=== PATIENT | female | born 2000 | race Caucasian/White ===

== ENCOUNTER 2018-03-19 12:32 | Emergency (ER) | payer OTHER ==
--- NOTE | 2018-03-19 13:41 | EDPHY ---
H & P Stated Complaint: RUQ pain for several dasy. Has U/S earlier today. Time Seen by Provider: 03/19/18 13:41 HPI/ROS: CHIEF COMPLAINT: Abdominal pain HISTORY OF PRESENT ILLNESS: This is a 17-year-old female who presents with 1 month of diffuse abdominal pain, sometimes worse across her upper abdomen. She has vomited after eating for the past 2 days. She describes the pain as constant and knife like. She rates it as a 5 to 6/10. She smokes marijuana on occasion. She has not had fever. She denied denies any urinary complaints. She is sexually active and denies any history of STD, any vaginal discharge, and any pain with intercourse. She has been tested for STDs on February 28 and again on March 13; testing was negative. She has a control implant. She has never been . She was seen by her primary care physician for this and underwent an abdominal ultrasound today that was negative. REVIEW OF SYSTEMS: A ten system review of systems was performed and is negative with the exception of the items mentioned in the HPI. Past medical history: Negative Past surgical history: 2 knee surgeries Family history: Noncontributory Social history: Her mother accompanies her today. 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 She smokes marijuana on occasion. No tobacco use. General Appearance: Alert. Vital signs reviewed. Afebrile. Eyes: Pupils equal and round, no conjunctival injection, no discharge. Anicteric. ENT, Mouth: Mucous membranes are moist, no oropharyngeal erythema or edema. Neck: No lymphadenopathy, supple. Respiratory: Lungs are clear to auscultation; no wheezes, rales, or rhonchi. Cardiovascular: Regular rate and rhythm; no murmur, rub, or gallop. Gastrointestinal: Abdomen is soft and mildly diffusely tender without guarding , no masses or organomegaly, bowel sounds normal. Skin: Warm and dry, no rashes on exposed skin, normal color. Back: Nontender to palpation over the thoracolumbar spine. No CVAT. Extremities: No lower extremity edema, no calf tenderness or swelling. Neurological: Alert and oriented. Moving all four extremities easily and equally. Psychiatric: Normal affect. - Personal History LMP (Females 10-55): Extended Cycle BCP/Inj Current Tetanus Diphtheria and Acellular Pertussis (TDAP): Yes - Medical/Surgical History Hx Asthma: No Hx Chronic Respiratory Disease: No Hx Diabetes: No Hx Cardiac Disease: No Hx Renal Disease: No Hx Cirrhosis: No Hx Alcoholism: No Hx HIV/AIDS: No Hx Splenectomy or Spleen Trauma: No Other PMH: 2 knee surgeries - Social History Smoking Status: Never smoked Constitutional: Initial Vital Signs Temperature (C) 36.6 C 03/19/18 12:34 Heart Rate 78 03/19/18 12:34 Respiratory Rate 16 03/19/18 12:34 Blood Pressure 125/79 H 03/19/18 12:34 O2 Sat (%) 96 03/19/18 12:34 O2 Delivery Mode Room Air Allergies/Adverse Reactions: nickel Allergy (Intermediate, Verified 03/19/18 21:35) Itching Home Medications: Medication Instructions Recorded Amphet Asp and D/Amphet [Adderall 20 mg PO DAILY@1400 PRN 03/20/18 20 mg (*)] Lisdexamfetamine Dimesylate 40 mg PO DAILY 03/20/18 [Vyvanse] Medical Decision Making ED Course/Re-evaluation: I reviewed the patient's previous records. She had STD testing done twice this month, both times negative for GC and Chlamydia. She had an abdominal ultrasound done earlier today which is negative. CT scan the abdomen and pelvis was performed today. 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 I doubt that this is the etiology of her pain but I am strongly recommending that she follow up with a specialist to have this further evaluated. I spoke with both the patient and her mother about this diagnosis. She received 1 L IV normal saline, 4 mg IV Zofran, and 75 mcg IV fentanyl in the emergency department. She had some initial pain relief but her pain resurfaced. She then received ketamine 5 mg IV. She had a good result with the ketamine and was able to pass a p.o. Challenge. Her pain at again started to resurfaced and she was given a 2nd dose of IV ketamine. Following the 2nd dose she felt well enough to return home. She had CBC, chemistries, lipase, beta HCG, and urinalysis done today. I reviewed these results. There is nothing to suggest infection such as urinary tract infection, pyelonephritis, appendicitis, or cholecystitis. Her ultrasound suggests against both cholecystitis and appendicitis. I do not suspect ureterolithiasis based upon the nature of her symptoms. Although her pain is diffuse, it tends to be in her upper abdomen and I do not suspect intermittent ovarian torsion or ovarian cyst. Ultrasound also would rule against these entities. Gastritis and peptic ulcer disease are certainly possibilities. In addition to being referred to a real estate rep for follow-up on the renal nutcracker syndrome, I am also referring her to a [facility] and encouraging follow-up as soon as possible. Danger signs were reviewed. Both she and her mother comfortable returning home at this point in time. They understand that the etiology of her pain remains unclear. - Data Points Laboratory Results: Laboratory Results 03/19/18 13:45 03/19/18 13:45 Medications Given: Discontinued Medications Fentanyl (Sublimaze) 75 mcg IVP EDNOW ONE Stop: 03/19/18 14:09 Last Admin: 03/19/18 14:23 Dose: 75 mcg Sodium Chloride (Ns) 1,000 mls @ 0 mls/hr IV EDNOW ONE; Wide Open PRN Reason: Protocol Stop: 03/19/18 14:09 Last Admin: 03/19/18 14:24 Dose: 1,000 mls Ketamine HCl (Ketamine) 5 mg IVP EDNOW ONE Stop: 03/19/18 15:05 Last Admin: 03/19/18 15:09 Dose: 5 mg Ketamine HCl (Ketamine) 5 mg IVP EDNOW ONE Stop: 03/19/18 18:02 Last Admin: 03/19/18 18:10 Dose: 5 mg Ondansetron HCl (Zofran) 4 mg IVP EDNOW ONE Stop: 03/19/18 14:09 Last Admin: 03/19/18 14:23 Dose: 4 mg Ondansetron HCl (Zofran) 4 mg IVP EDNOW ONE Stop: 03/19/18 15:13 Last Admin: 03/19/18 15:13 Dose: 4 mg Departure - Departure Disposition: Home, Routine, Self-Care Clinical Impression: Abdominal pain Qualifiers: Abdominal location: generalized Qualified Code(s): R10.84 - Generalized abdominal pain Condition: Good Instructions: Abdominal Pain (ED) Additional Instructions: As you know, it is not clear what has been causing your abdominal pain and your difficulty eating. I am recommending that you follow up with a [facility] and I am referring you to Dr. Gatof. It is fine for you to see any of the gastroenterologists in that group and I would take the earliest appointment that they can offer you. Make sure that the office staff knows that you are being referred from the emergency department. I am also referring you to a real estate rep, Dr. Pierson, to evaluate the renal nutcracker syndrome that was seen on your CT scan. It is not clear whether not this is related to your symptoms. I am also referring you to a primary care provider in case you need one, Dr. Adamaris Rome. I recommend that you put 1 of the Zofran wafers under tongue every time you want to eat. Let it dissolve and then try a bland meal. Small meals are best. I am providing a small quantity of Vicodin, an opiate pain medicine, that you can use over the weekend if needed. Adult Pain & Fever Control: We recommend Acetaminophen (Tylenol) and Ibuprofen (Motrin,Advil) for pain and fever control. When fever is high or pain severe, both drugs can be used at the same time, but at different intervals. Please note the time differences. Your dose is: Acetaminophen 650mg every 4 to 6 hours Ibuprofen 400mg every 8 hours with food OR Note: do not take Acetaminophen with Hydrocodone (Vicodin, Lortab) or Oycodone (Percocet). These medications also contain Acetaminophen. No more than 3000mg of Acetaminophen should be taken in 24 hours (for an adult). Referrals: Bebeto Sargent DO [Doctor of Osteopathy] - As per Instructions Taco Black MD [Medical Doctor] - As per Instructions Adamaris Rome MD [Medical Doctor] - As per Instructions
[2018-03-19] MEDS ORDERED: ONDANSETRON 4 MG/2 ML VIAL IVP ONE ×2 (14:08→15:12)
[2018-03-19] MEDS ORDERED: NS 1,000 ML IV ONE (14:08)
[2018-03-19] MEDS ORDERED: fentaNYL 100 MCG/2 ML INJ IVP ONE (14:08)
[2018-03-19 14:28] LABS: PLATELET COUNT 321 10^3/uL (150-400)
[2018-03-19] MEDS ORDERED: ONDANSETRON 4 MG/2 ML VIAL ONE (14:58)
[2018-03-19] MEDS ORDERED: KETAMINE 200 MG/20 ML VIAL IVP ONE ×2 (15:04→18:01)
[2018-03-19] MEDS ORDERED: IOPAMIDOL (ISOVUE-300) 100 ML BTL ONE (15:50)
[2018-03-19 18:41] VITALS: BP 118/80
== END 2018-03-19 18:41 | disposition home or self-care (01) ==
DX: R10.84 Generalized abdominal pain (principal); I87.1 Compression of vein; E86.9 Volume depletion, unspecified
CPT/HCPCS: 96374; J2405; J3010; Q9967

== ENCOUNTER 2018-03-19 21:32 | Inpatient (IN) | payer OTHER ==
[2018-03-19] MEDS ORDERED: FAMOTIDINE 20 MG/NACL 50 ML IV ONE (22:17)
[2018-03-19] MEDS ORDERED: PROMETHAZINE HCL 25 MG/ML INJ IVP ONE (22:17)
[2018-03-19] MEDS ORDERED: PANTOPRAZOLE SODIUM 40 MG VIAL IVP ONE (22:17)
[2018-03-19] MEDS ORDERED: NS 1,000 ML IV ONE ×2 (22:17)
--- NOTE | 2018-03-19 22:22 | EDPHY ---
H & P Stated Complaint: Seen earlier-continued nausea, epigastric pain. Time Seen by Provider: 03/19/18 21:58 HPI/ROS: HPI The patient presents with epigastric abdominal pain which has been present for the last 3 days which started fairly suddenly. The pain is achy radiates throughout her upper abdomen, is severe and causes her to double over in pain. It he comes in waves lasting for hours at a time, usually worse after meals or water. This is associated with nausea and vomiting. The patient is only able to take several sips of water before she begins to vomit. She has not had any diarrhea, fever, dark or bloody stool, abdominal bloating. Over the last 1 year she has had some early satiety. She is able to take a few bites of food and then becomes full. Since December of 2017 she has lost 15 lb. She does take Adderall and Vyvanse though her Adderall dose has decreased recently and she is not taking any more Vyvanse than usual. She has Nexplanon for control. She does not have any NSAID use. She is visiting from [place] where she goes to college. Her family lives locally. She saw a primary care nurse practitioner when her symptoms started and was prescribed a PPI, however she has not been able to tolerated as she vomits it. She had an abdominal ultrasound done today which was unremarkable as an outpatient. She presented to the emergency room this morning with ongoing symptoms. She had labs which were unremarkable. She had a CT scan of her abdomen which was relatively unremarkable though showed possible left renal nutcracker syndrome. REVIEW OF SYSTEMS 10 systems were reviewed and negative with the exception of the elements mentioned in the history of present illness. PMHx: Healthy, prior orthopedic knee operation Soc Hx: College student in [place] PHYSICAL General Appearance: Alert, no distress Eyes: Pupils equal and round no pallor or injection ENT, Mouth: Mucous membranes moist Respiratory: There are no retractions, lungs are clear to auscultation Cardiovascular: Regular rate and rhythm Gastrointestinal: Abdomen is soft and tender in the epigastrium, no masses, bowel sounds normal Neurological: A&O, moves all extremities Skin: Warm and dry, no rashes Musculoskeletal: Neck is supple non tender Extremities: symmetrical, full range of motion Psychiatric: Patient is oriented X 3, there is no agitation Source: Patient Exam Limitations: No limitations - Personal History LMP (Females 10-55): Extended Cycle BCP/Inj Current Tetanus/Diphtheria Vaccine: Unsure Current Tetanus Diphtheria and Acellular Pertussis (TDAP): Unsure - Medical/Surgical History Hx Asthma: No Hx Chronic Respiratory Disease: No Hx Diabetes: No Hx Cardiac Disease: No Hx Renal Disease: No Hx Cirrhosis: No Hx Alcoholism: No Hx HIV/AIDS: No Hx Splenectomy or Spleen Trauma: No Other PMH: 2 knee surgeries. - Social History Smoking Status: Never smoked Constitutional: Initial Vital Signs Temperature (C) 36.8 C 03/19/18 21:36 Heart Rate 75 03/19/18 21:36 Respiratory Rate 16 03/19/18 21:36 Blood Pressure 126/76 H 03/19/18 21:36 O2 Sat (%) 98 03/19/18 21:36 O2 Delivery Mode Room Air Allergies/Adverse Reactions: nickel Allergy (Intermediate, Verified 03/19/18 21:35) Itching Home Medications: Medication Instructions Recorded Amphet Asp and D/Amphet [Adderall 20 mg PO DAILY@1400 PRN 03/20/18 20 mg (*)] Lisdexamfetamine Dimesylate 40 mg PO DAILY 03/20/18 [Vyvanse] Medical Decision Making Differential Diagnosis: This is a 17-year-old female who is had 1 year of anorexia and early satiety, several months of weight loss which is unintentional, and 3 days of severe epigastric abdominal pain with vomiting with symptoms poorly controlled at home. She was discharged from the emergency department earlier today, went home with Zofran 0 DT, however is vomiting it up at home and is having ongoing abdominal pain. Plan for IV fluids, symptomatic relief, repeat labs. The patient had recurrence of her pain and was given ketamine without any improvement of her symptoms. She then was given a dose of Dilaudid which did help her pain. He received 2 L of fluid. Labs were unremarkable. She did have ongoing nausea and vomiting and was able to tolerate p.o.. Because of this I have discussed the case with Dr. Tucker of the hospitalist service and we will admit her for observation. Differential diagnosis includes gastritis, GERD, cannabinoid hyperemesis syndrome, anxiety. - Data Points Laboratory Results: Laboratory Results 03/20/18 06:11 03/20/18 06:11 Medications Given: Hydromorphone HCl (Dilaudid) 0.2 - 0.4 mg IVP Q4HRS PRN PRN Reason: Pain, Severe Unable to Take PO Stop: 03/30/18 01:06 Last Admin: 03/20/18 20:13 Dose: 0.4 mg Dextrose/Sodium Chloride (D5w 1/2 Ns) 1,000 mls @ 100 mls/hr IV CONT CONNIE Stop: 09/15/18 23:44 Last Admin: 03/20/18 14:28 Dose: 1,000 mls Lorazepam (Ativan Injection) 1 mg IVP Q4HRS PRN PRN Reason: Nausea Stop: 09/16/18 01:45 Last Admin: 03/20/18 20:13 Dose: 1 mg Pantoprazole Sodium (Protonix) 40 mg IVP DAILY [facility] Stop: 09/16/18 10:59 Last Admin: 03/20/18 12:33 Dose: 40 mg Discontinued Medications Hydromorphone HCl (Dilaudid) 0.5 mg IVP EDNOW ONE Stop: 03/19/18 23:16 Last Admin: 03/19/18 23:19 Dose: 0.5 mg Sodium Chloride (Ns) 1,000 mls @ 0 mls/hr IV EDNOW ONE; Wide Open PRN Reason: Protocol Stop: 03/19/18 22:18 Last Admin: 03/19/18 22:27 Dose: 1,000 mls Sodium Chloride (Ns) 1,000 mls @ 0 mls/hr IV EDNOW ONE; Wide Open PRN Reason: Protocol Stop: 03/19/18 22:18 Last Admin: 03/19/18 22:28 Dose: 1,000 mls Famotidine/Sodium Chloride (Pepcid 20 Mg (Premix)) 50 mls @ 200 mls/hr IV EDNOW ONE Stop: 03/19/18 22:31 Last Admin: 03/19/18 22:28 Dose: 50 mls Ketamine HCl (Ketamine) 5 mg IV EDNOW ONE Stop: 03/19/18 22:53 Last Admin: 03/19/18 22:55 Dose: 5 mg Pantoprazole Sodium (Protonix) 80 mg IVP EDNOW ONE Stop: 03/19/18 22:18 Last Admin: 03/19/18 22:29 Dose: 80 mg Promethazine HCl (Phenergan) 12.5 mg IVP EDNOW ONE Stop: 03/19/18 22:18 Last Admin: 03/19/18 22:28 Dose: 12.5 mg Promethazine HCl (Phenergan) 6.25 - 12.5 mg IVP Q6HRS PRN PRN Reason: Nausea/Vomiting, Use 2nd Stop: 09/15/18 23:46 Last Admin: 03/20/18 11:04 Dose: 12.5 mg Scopolamine HBr (Scopolamine Patch) 1 patch TD Q24H ONE Stop: 03/20/18 13:24 Last Admin: 03/20/18 14:25 Dose: 1 patch Departure - Departure Disposition: [facility] Inpatient Acute Clinical Impression: Epigastric abdominal pain Intractable vomiting with nausea Qualifiers: Vomiting type: unspecified Qualified Code(s): R11.2 - Nausea with vomiting, unspecified Condition: Good
[2018-03-19] MEDS ORDERED: KETAMINE 500 MG/10 ML VIAL IV ONE (22:52)
[2018-03-19] MEDS ORDERED: HYDROmorphONE/DILAUDID 2 MG/ML INJ IVP ONE (23:15)
[2018-03-19 23:34] LABS: PLATELET COUNT 284 10^3/uL (150-400)
[2018-03-19] MEDS ORDERED: ONDANSETRON DISINTEGRATING 4 MG TAB PO PRN (23:47)
--- NOTE | 2018-03-20 00:58 | PDGENHP ---
History and Physical - Chief Complaint Nausea, abdominal pain - History of Present Illness 17 yo F w/ hx of ADHD presents with nausea, vomiting, and abdominal pain. She reports these symptoms for about 3 days. She describes epi-gastric/RUQ severe pain that will last for several hours at a time. The pain feels like a sharp cramp. This is associated with severe nausea and vomiting. She denies recent illness and infectious ROS such as fever, chills, sore throat, body aches, etc. She denies diarrhea or constipation. She also denies any blood in stools or melena. She has had no recent sick contacts or consumed any suspicious foods. She has been seen in the ED multiple times over the last 24 hours. Her symptoms improved during her last visit with ketamine. However, shortly after returning home her symptoms recurred. Of note, she also tells me that for the last year she has a feeling of early satiety. She has lost 10-15 lbs since returning to college in [place] in December. She tells me she does have a history of poorly controlled anxiety as well. There is no family hx of known IBD. She drinks alcohol and smokes MJ only occasionally. She takes no other drugs aside from prescribed Vyvanse and Adderall. Work-up in the ED unremarkable including laboratory work-up and CT. Case discussed with ED physician Dr. Doran; records reviewed in EMR. History Information - Allergies/Home Medication List Allergies/Adverse Reactions: nickel Allergy (Intermediate, Verified 03/19/18 21:35) Itching Home Medications: No Medications [NO HOME MEDICATIONS] 1 ea MISC 09/20/11 [Last Taken Unknown] Zofran 03/19/18 [Last Taken Unknown] I have personally reviewed and updated: family history, medical history - Past Medical History Additional medical history: ADHD - Surgical History Reports: no pertinent surgical hx - Family History Additional family history: Denies family hx of IBD - Social History Smoking Status: Never smoked Review of Systems Review of Systems: ROS: 10pt was reviewed & negative except for what was stated in HPI & below Physical Exam Physical Exam: Temp Pulse Resp BP Pulse Ox 36.8 C 45 L 16 108/52 L 98 03/19/18 21:36 03/20/18 00:29 03/20/18 00:29 03/20/18 00:29 03/20/18 00:29 Constitutional: no apparent distress, other (Underweight) Eyes: PERRL, EOMI Ears, Nose, Mouth, Throat: moist mucous membranes, no oral mucosal ulcers Cardiovascular: regular rate and rhythym, no murmur, rub, or gallop Respiratory: no respiratory distress, clear to auscultation Gastrointestinal: normoactive bowel sounds, tenderness (Mild, epi-gastric/RUQ), No guarding, No rebound, No distension Skin: warm, normal color Musculoskeletal: full muscle strength, no muscle tenderness Neurologic: AAOx3, CN II-XII Intact Psychiatric: interacting appropriately, not anxious Lab Data & Imaging Review 03/19/18 22:00 03/19/18 22:00 WBC 7.34 10^3/uL (3.80-9.50) 03/19/18: RBC 4.29 10^6/uL (4.18-5.33) 03/19/18 22:00 Hgb 14.3 g/dL (12.6-16.3) 03/19/18 22: Hct 40.8 % (38.0-47.0) 03/19/18 22:00 MCV 95.1 fL (81.5-99.8) 03/19/18 22:00 MCH 33.3 pg (27.9-34.1) 03/19/18 22: MCHC 35.0 g/dL (32.4-36.7) 03/19/18 22: RDW 12.1 % (11.5-15.2) 03/19/18:00 Plt Count 284 10^3/uL (150-400) 03/19/18: MPV 10.6 fL (8.7-11.7) 03/19/18 22:00 Neut % (Auto) 70.1 % (39.3-74.2) 03/19/18 22:00 Lymph % (Auto) 21.3 % (15.0-45.0) 03/19/18 22:00 Hardy % (Auto) 7.6 % (4.5-13.0) 03/19/18 22:00 Eos % (Auto) 0.3 % (0.6-7.6) L 03/19/18 22: Baso % (Auto) 0.4 % (0.3-1.7) 03/19/18 22:00 Nucleat RBC Rel Count 0.0 % (0.0-0.2) 03/19/18 22:00 Absolute Neuts (auto) 5.15 10^3/uL (1.70-6.50) 03/19/18 22:00 Absolute Lymphs (auto) 1.56 10^3/uL (1.00-3.00) 03/19/18 22:00 Absolute Monos (auto) 0.56 10^3/uL (0.30-0.80) 03/19/18 22:00 Absolute Eos (auto) 0.02 10^3/uL (0.03-0.40) L 03/19/18 22:00 Absolute Basos (auto) 0.03 10^3/uL (0.02-0.10) 03/19/18 22:00 Absolute Nucleated RBC 0.00 10^3/uL (0-0.01) 03/19/18 22:00 Immature Gran % 0.3 % (0.0-1.1) 03/19/18 22:00 Immature Gran # 0.02 10^3/uL (0.00-0.10) 03/19/18 22:00 Sodium 141 mEq/L (135-145) 03/19/18 22:00 Potassium 4.1 mEq/L (3.3-5.0) 03/19/18 22:00 Chloride 108 mEq/L (97-110) 03/19/18 22:00 Carbon Dioxide 22 mEq/l (22-31) 03/19/18 22:00 Anion Gap 11 mEq/L (6-14) 03/19/18 22:00 BUN 8 mg/dL (7-23) 03/19/18 22:00 Creatinine 0.8 mg/dL (0.6-1.0) 03/19/18 22:00 Estimated GFR > 60 03/19/18 22:00 Glucose 83 mg/dL (70-100) 03/19/18 22:00 Calcium 10.4 mg/dL (8.5-10.4) 03/19/18 22:00 Total Bilirubin 0.9 mg/dL (0.1-1.4) 03/19/18 22:00 Conjugated Bilirubin 0.2 mg/dL (0.0-0.5) 03/19/18 22:00 Unconjugated Bilirubin 0.7 mg/dL (0.0-1.1) 03/19/18 22:00 AST 21 IU/L (14-46) 03/19/18 22:00 ALT 27 IU/L (9-52) 03/19/18 22:00 Alkaline Phosphatase 80 IU/L (38-126) 03/19/18 22:00 Total Protein 7.7 g/dL (6.3-8.2) 03/19/18 22:00 Albumin 4.8 g/dL (3.5-5.0) 03/19/18 22:00 Lipase 84 IU/L (23-300) 03/19/18 22:00 Assessment & Plan Assessment: 17 yo F w/ hx of ADHD presents with nausea, vomiting, and abdominal pain of unclear etiology. Plan: 1. Abdominal pain, nausea, vomiting - Unclear etiology; laboratory work-up including LFTs, lipase, and UA reassuring. CT without acute findings to explain symptoms. She denies recent illness, BRBPR, melena, and family hx of IBD. Considerations currently include viral gastroenteritis vs. gastritis/PUD vs. IBS vs. functional abdominal pain. If she is being truthful about substance use then CHS seems unlikely. - Admit for observation - mIVF, pain control, anti-emetics PRN - Would consider inpatient GI consult if symptoms do not resolve with supportive care 2. ADHD - On Vyvanse and Adderall as outpatient. 3. Early satiety, weight loss - It seems these issues have been going on for about a year. These could be related to poorly controlled anxiety or developing eating disorder, although patient tells me she eats well (with mother present in the room). 4. L renal nutcracker syndrome - Incidentally found on imaging; unlikely to be contributing to presenting symptoms. Renal function WNL. - Outpatient renal consult provided Diet - Clears, ADAT Code - Full Ppx - Low risk, ambulate TID Dispo - Admit under observation status
[2018-03-20] MEDS ORDERED: DICYCLOMINE 10 MG CAP PO PRN (01:07)
[2018-03-20] MEDS: PROMETHAZINE HCL 25 MG/ML INJ IVP PRN ×2 (01:35→11:04)
[2018-03-20] MEDS: LORazepam 2 MG/ML INJ IVP PRN ×3 (01:54→20:13)
[2018-03-20] MEDS: HYDROmorphONE/DILAUDID 1 MG/ML INJ IVP PRN ×3 (06:10→20:13)
[2018-03-20 06:27] LABS: PLATELET COUNT 222 10^3/uL (150-400)
--- NOTE | 2018-03-20 10:50 | HOSPPROG ---
Hospitalist Progress Note Assessment/Plan: # persistent N/V/abd pain - unclear etiology; MJ hyperemesis? - cont conservative mgmt with IVF, pain control and enti-emetics - discussed with Dr Black - he will consult and consider EGD # nutcracker kidney - no c/w current presentation - no proteinuria or hematuria Subjective: still actively vomiting; c/o ongoing RLQ pain Objective: Vital Signs Temp Pulse Resp BP Pulse Ox 36.8 C 68 16 119/73 95 03/20/18 08:32 03/20/18 08:32 03/20/18 08:32 03/20/18 08:32 03/20/18 08:32 Laboratory Results 03/20/18 06:11 03/20/18 06:11 03/19/18 03/20/18 03/21/18 05:59 05:59 05:59 Intake Total 2500 Balance 2500 chart reviewed US and CT reviewed - Physical Exam Constitutional: uncomfortable (vomiting) Eyes: anicteric sclera Ears, Nose, Mouth, Throat: hearing normal Cardiovascular: No edema Respiratory: no respiratory distress (soft, RLQ TTP, no masses, no HSM) Gastrointestinal: No guarding, No rebound ICD10 Worksheet Patient Problems: Problems Problem Status Onset Abdominal pain Acute Abdominal pain Acute
--- NOTE | 2018-03-20 11:52 | PDMN ---
Medical Necessity Medical necessity: Change to inpt as of 03/20/18 @ 1047. Pt meets inpt criteria per MD order and MCG M-370, Vomiting. 17 y/o admitted with abdominal pain, nausea, and vomiting. Nausea, vomiting, and abd pain persist- unclear etiology, cont to require IV antiemetics, IV Dilaudid for pain. Est LOS>2MN for ongoing eval/management of above.
[2018-03-20] MEDS: PANTOPRAZOLE SODIUM 40 MG VIAL IVP SCH (12:33)
[2018-03-20] MEDS ORDERED: SCOPOLAMINE HYDROBROMIDE 1 MG/3 DAYS PATCH TD ONE (13:23)
--- NOTE | 2018-03-20 13:39 | ASMTCMCOM ---
CM Note CM Note Notes: Pt is a 17y female who presented to the ED for the 2nd time in one day for RUQ/epigastric abdominal pain and N/V. Pt admitted for N/V and abd pain of unclear etiology (labs and CT scan unremarkable). Pt also reports feelings of early satiety for the past year. Pt reports losing 10-15 lbs since returning to college in [place] in December. Pt has a history of ADHD, poorly controlled anxiety, and occasional ETOH and marijuana use. Abd CT scan unremarkable except for incidental finding of left renal nutcracker syndrome; outpatient renal consult/referral provided. Dr Black w/GI consulted and is considering EGD. Per MD notes, concern for pt developing an eating disorder? Also considering Cannabis Hyperemesis Syndrome? Exact DC needs TBD but anticipate pt to stabilize and DC home w/family (parents live here in [place]). CM to follow. Date Signed: 03/20/2018 01:38 PM Electronically Signed By:Adamaris Lomeli RN
--- NOTE | 2018-03-20 14:05 | GCON ---
DATE OF CONSULTATION: 03/20/2018 REFERRING PHYSICIAN: Keshawn Zambrano MD Dear Dr. Zambrano: Thank you very kindly for asking me to evaluate the patient in consultation for a chief complaint of nausea, vomiting, and generalized abdominal pain. 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 The kidney otherwise imaged normally. The other radiographic finding s were unremarkable. Her blood work has been normal. She is unable to eat or drink because of the v omiting. This started about 3 days ago when traveling from [place], where she goes to school. She h as not had previous episodes. The patient describes the abdominal pain as sharp and somewhat stabbin g. It is worse when she tries to eat. She is nauseous and has no appetite. She has lost about 12 p ounds of weight over the last 3 months. She did have a very stressful fall semester with midterms. She has been treated with Dilaudid, antiemetic, and Ativan and seems to be doing somewhat better. Timi arroyo was somnolent and difficult to arouse initially when I came into the room. She also has underlying anxiety, which has been very longstanding for her. I am asked to assist with further evaluation and management. PAST MEDICAL HISTORY: Significant for anxiety disorder, attention deficit disorder, chronic cannabis use. PAST SURGICAL HISTORY: None. FAMILY HISTORY: Negative for any functional bowel disorders, inflammatory bowel disease, peptic ulce r disease, although her grandmother had pancreatitis. SOCIAL HISTORY: She is a sophomore in [place]. She has a very supportive family. She has chronic a nxiety. She smokes marijuana routinely several times a week, and she says she has been cutting back on this. No alcoholism. REVIEW OF SYSTEMS: GENERAL: Malaise, fatigue. HEENT: No headache. No visual disturbances. Denie s odynophagia. No ear pain. No rhinorrhea. PULMONARY: No cough or shortness of breath. CARDIOVAS CULAR: No chest pain or palpitations. GI: Diffuse abdominal pain, seems to be worse on the right s cherelle and epigastric. Reports nausea with vomiting. No hematemesis. No bowel movements in the last c ouple of days, which is a little unusual for her, but she says she thinks it is because she is not ea ting. No melena. No hematochezia. No diarrhea. MUSCULOSKELETAL: Denies any joint pain. No myalgi a. DERMATOLOGIC: No hives, jaundice, rash, or pruritus. NEUROLOGIC: No headache. No falls. No s eizure. RHEUMATOLOGIC: Denies joint pain, swelling, or warmth. HEMATOLOGIC: No bruising or epista xis. PHYSICAL EXAM: VITAL SIGNS: Blood pressure is 113/72. Pulse is between 45 and 68 and regular. Oxy genation is 97% on room air. Respirations are between 12 and 14. Temperature is 36.8. GENERAL: Com fortable female, sleeping, difficult to arouse, but once awake, does seem cognitively appropriate but then falls back asleep. HEENT: Normocephalic, atraumatic. NECK: Supple. No scleral icterus. No adenopathy. No thyromegaly. No jugular venous distention. PULMONARY: Good air exchange. Lungs a re clear sounding, without rales or wheeze. CARDIOVASCULAR: No costochondral tenderness. Normal ra te. Normal rhythm. No obvious murmur. GI: The abdomen is scaphoid and quite thin. No organomegal y. Bowel sounds are present and normoactive. Generalized tenderness, without rebound or guarding. No palpable mass. No hernia. No abdominal bruit. No ascites. MUSCULOSKELETAL: No joint deformity , swelling or warmth. DERMATOLOGIC: Skin is normal. She is pale, but no jaundice or rash. NEURO: Sleepy but alert, arousable, able to communicate with me after pressing her with questions multiple times, but I think this is just due to her exhaustion and medications on board. No focal neuro defic its. LABORATORY DATA: Database includes the following: White blood count is 6.8, hematocrit 36.0, MCV 93 .3. Platelets are 222. Sodium 141, potassium 4.1, chloride 111, bicarbonate 20, BUN 7, creatinine 0 .6, glucose 129, AST 17, ALT 25, alkaline phosphatase 54, total protein 6.3, albumin 3.8. Lipase is 84. Imaging includes an abdominal ultrasound performed on March 19, 2018, that is normal. CT scan of t he abdomen and pelvis March 19, 2018, with oral and IV contrast. This shows clear lung bases, no s ignificant intraabdominal fluid, normal liver, normal gallbladder, normal bile ducts. The pancreas a nd spleen are normal. The bowel is unremarkable. There is compression of the left renal vein betwee n the SMA and aorta causing venous collateralization. No adenopathy or mass. The bowel is unremarka ble without dilation. The urinary bladder is normal. The appendix is visualized and unremarkable. IMPRESSION: 1. Nausea, vomiting. 2. Weight loss of 12 pounds in the last 3 months. 3. Diffuse abdominal pain. The differential is broad and can include hyperemesis of cannabis syndro me, possibly superior mesenteric artery syndrome. Although there is no radiographic evidence of this, this can fit with vomiting in young people who are thin and lose a lot of weight, cyclical vomiting syndrome, functional bowel, such as dyspepsia or of course other organic gastrointestinal disorders, such as acid peptic-related illness. I am leaning heavily toward more of a functional bowel disorder , however, given her clinical presentation and story. RECOMMENDATIONS: 1. Supportive care for now. Continue IV fluid. She may eat and drink as she likes. 2. Managing anxiety. I think Ativan is a good choice for this and can help with the nausea. 3. Trial of scopolamine patch. She has noted this has helped her in the past with anesthesia-relate d nausea after a wrist surgery. This may be beneficial for her. 4. Will consider upper endoscopy if she fails to improve in the next day or 2 with conservative yolette ures. 5. I have discussed the plan with Dr. Zambrano and the family. They are supportive of the conservati ve care plan for today, and we will discuss a propofol-based endoscopy if things worsen overnight. /[id number]/MODL
[2018-03-20] MEDS: D5W 1/2 NS 1,000 ML IV SCH (14:28)
[2018-03-21] MEDS: D5W 1/2 NS 1,000 ML IV SCH (00:31)
[2018-03-21] MEDS: HYDROmorphONE/DILAUDID 1 MG/ML INJ IVP PRN ×3 (00:31→09:21)
[2018-03-21] MEDS: PANTOPRAZOLE SODIUM 40 MG VIAL IVP SCH (08:09)
--- NOTE | 2018-03-21 09:10 | SOAPPROG ---
SOAP Progress Note Assessment/Plan: Assessment: 1. N/V 2. Generalized abdominal pain Plan: 1. EGD today 2. Start desipramine 10mg po qhs if EGD negative 3. Resume anti-spasmotic therapy instead of narcotic mgt if possible after procedure today 4. May need an opinion from urology regarding her CT findings of her renal abnormality. Her pain is described today as severe, intermittent, colicky and left sided and flank (*per her fathers description). 03/21/18 09:07 Subjective: CC: Better today but without dilaudid routine in crisis with pain. No further N/V. Did eat jello yesterday. Objective: Vital Signs Temp Pulse Resp BP Pulse Ox 36.9 C 47 L 14 107/53 L 95 03/21/18 07:36 03/21/18 07:36 03/21/18 07:36 03/21/18 07:36 03/21/18 07:36 Laboratory Results 03/21/18 04:16 03/20/18 03/21/18 03/22/18 05:59 05:59 05:59 Intake Total 1140 Balance 1140 Physical Exam - Physical Exam General Appearance: no apparent distress, thin EENT: normal ENT inspection Neck: full range of motion, supple Respiratory: chest non-tender, lungs clear Cardiac/Chest: regular rate, rhythm Abdomen: normal bowel sounds, non-tender, soft, No distended, No guarding, No rebound, No ascites ICD10 Worksheet Patient Problems: Problems Problem Status Onset Abdominal pain Acute Abdominal pain Acute Epigastric abdominal pain Acute Intractable vomiting with nausea Acute
[2018-03-21] MEDS ORDERED: MIDAZOLAM 2 MG/2 ML VIAL ONE (11:37)
--- NOTE | 2018-03-21 11:38 | PDANEPAE ---
ANE Past Medical History - Cardiovascular History Hx Hypertension: No Hx Arrhythmias: No Hx Chest Pain: No Hx Coronary Artery / Peripheral Vascular Disease: No Hx CHF / Valvular Disease: No Hx Palpitations: No - Pulmonary History Hx COPD: No Hx Asthma/Reactive Airway Disease: No Hx Recent Upper Respiratory Infection: No Hx Oxygen in Use at Home: No Hx Sleep Apnea: No Sleep Apnea Screening Result - Last Documented: Negative - Endocrine History Hx Diabetes: No ANE Review of Systems Review of Systems: ANE Patient History - Allergies Allergies/Adverse Reactions: nickel Allergy (Intermediate, Verified 03/19/18 21:35) Itching - Home Medications Home Medications: Amphet Asp and D/Amphet [Adderall 20 mg (*)] 20 mg PO DAILY@1400 PRN 03/20/18 [ Last Taken Unknown] Lisdexamfetamine Dimesylate [Vyvanse] 40 mg PO DAILY 03/20/18 [Last Taken Unknown] - NPO status NPO Since - Liquids (Date): 03/21/18 NPO Since - Liquids (Time): 00:00 NPO Since - Solids (Date): 03/21/18 NPO Since - Solids (Time): 00:00 - Smoking Hx Smoking Status: Never smoked ANE Labs/Vital Signs - Labs Result Diagrams: 03/20/18 06:11 03/21/18 04:16 - Vital Signs Blood Pressure: 107/53 Heart Rate: 47 Respiratory Rate: 14 O2 Sat (%): 95 Height: 167.64 cm Weight: 49.89 kg ANE Physical Exam - Airway Neck exam: FROM Mallampati Score: Class 1 Mouth exam: normal dental/mouth exam - Pulmonary Pulmonary: no respiratory distress - Cardiovascular Cardiovascular: regular rate and rhythym - ASA Status ASA Status: I ANE Anesthesia Plan Anesthesia Plan: GA with mask, MAC
[2018-03-21] MEDS ORDERED: MIDAZOLAM 2 MG/2 ML VIAL IVP ONE (11:39)
[2018-03-21] MEDS ORDERED: PROPOFOL 200 MG/20 ML VIAL ONE ×2 (11:47)
--- NOTE | 2018-03-21 11:57 | GIREPORT ---
[facility] Surgical Services - Endoscopy Department Patient Name: ELLIOT SHERMAN Procedure Date: 03/21/2018 11:33 AM Patient Type: Inpatient Attending MD/ ER Physician: Taco Black MD Procedure: Upper GI endoscopy Indications: Generalized abdominal pain, Nausea with vomiting Providers: Taco Black MD Medicines: Propofol per Anesthesia Complications: No immediate complications. Description of Procedure: After obtaining informed consent, the endoscope was passed under direct vision. Throughout the procedure, the patient's blood pressure, pulse, and oxygen saturations were monitored continuously. The Endoscope was intro duced through the mouth, and advanced to the second part of duodenum. The [facility] er GI endoscopy was accomplished without difficulty. The patient tolerated th e procedure well. Findings: The esophagus was normal. The stomach was normal. The examined duodenum was normal. Estimated Blood Loss: Estimated blood loss: none. Post Op Diagnosis: - Normal esophagus. - Normal stomach. - Normal examined duodenum. - No specimens collected. Recommendation: - Advance diet as tolerated. - Return patient to [facility] for [facility] care. - Consider trial of desipramine 10mg po qhs - Trial of bentyl 10mg po TID PRN pain - Try and stop narcotic medications for treatment of pain in the settin g of what I feel is a functional bowel disorder and severe anxiety. - Discontinue all THC products. - Thank you for allowing me to be involved in the care of your patient. Attending Participation: I personally performed the entire procedure without the assistance of a fellow, resident or surg ical clothing sales assistant. Taco Black MD Taco Black MD 03/21/2018 11:56:46 AM This report has been signed electronicallyDavid MD Sofia Number of Addenda: 0 Note Initiated On: 03/21/2018 11:33 AM [email or web address]
[2018-03-21] MEDS ORDERED: PATCH REMOVAL 1 EA PATCH TD ONE (13:23)
--- NOTE | 2018-03-21 13:35 | HOSPPROG ---
Hospitalist Progress Note Assessment/Plan: # persistent N/V/abd pain - EGD negative - suspect this is functional/anxiety driven - cont conservative mgmt with IVF, pain control and anti-emetics - bentyl added today, try to avoid narcotics if possible - would consider desipramine per Dr Black # nutcracker kidney - no c/w current presentation - urology referral as outpatient Subjective: s/p EGD - normal; currently without pain but very concerned that pain will return when she eats Objective: Vital Signs Temp Pulse Resp BP Pulse Ox 36.9 C 47 L 14 123/81 H 94 03/21/18 12:35 03/21/18 12:35 03/21/18 12:35 03/21/18 12:35 03/21/18 12:35 Laboratory Results 03/21/18 04:16 03/20/18 03/21/18 03/22/18 05:59 05:59 05:59 Intake Total 1140 400 Balance 1140 400 EGD reviewed discussed with Dr Black - Physical Exam Constitutional: uncomfortable Cardiovascular: regular rate and rhythym, no murmur, rub, or gallop Respiratory: no respiratory distress, no rales or rhonchi, clear to auscultation Gastrointestinal: soft, non-tender abdomen, no palpable masses, No guarding, No rebound, No distension ICD10 Worksheet Patient Problems: Problems Problem Status Onset Intractable vomiting with nausea Acute Epigastric abdominal pain Acute Abdominal pain Acute Abdominal pain Acute
[2018-03-21] MEDS: SCOPOLAMINE HYDROBROMIDE 1 MG/3 DAYS PATCH TD SCH (15:04)
[2018-03-21] MEDS: DICYCLOMINE 10 MG CAP PO PRN (19:03)
[2018-03-22] MEDS: HYDROmorphONE/DILAUDID 1 MG/ML INJ IVP PRN (08:05)
[2018-03-22] MEDS: ONDANSETRON 4 MG/2 ML VIAL IVP PRN ×2 (08:49→14:37)
[2018-03-22] MEDS: DICYCLOMINE 10 MG CAP PO PRN ×3 (09:12→20:16)
[2018-03-22] MEDS: LORazepam 2 MG/ML INJ IVP PRN ×3 (09:19→23:53)
--- NOTE | 2018-03-22 10:42 | HOSPPROG ---
Hospitalist Progress Note Assessment/Plan: * Intractable N/V/abd pain -CT abd/pelvis and abd US negative, negative EGD - negative, need to rule out PID -d/w Dr. Dc - check pelvic US and dirty urine for GC/chlamydia -suspect IBS vs. cannabis hyperemesis -supportive care - DC narcotics -try IV Toradol, Bentyl, desipramine * Severe anxiety -consult Gwen Garnett -try Vistaril - try to get away from IV Ativan * Nutcracker kidney -outpatient urology * THC use - 1-3 x per week and not heavy * 15 pound weight loss -concern for possible eating disorder -check TSH/HIV * Bradycardia - asymptomatic Subjective: Bad this morning, pain/N/V remain severe. Parents frustrated that she is still on IV dilaudid and they understand it is not longer indicated given negative work-up. Objective: Vital Signs Temp Pulse Resp BP Pulse Ox 36.6 C 40 L 16 128/85 H 96 03/22/18 07:56 03/22/18 07:56 03/22/18 07:56 03/22/18 07:56 03/22/18 07:56 Laboratory Results 03/21/18 04:16 03/21/18 03/22/18 03/23/18 05:59 05:59 05:59 Intake Total 1140 800 Balance 1140 800 Still using frequent IV dilaudid for pain control - Time Spent With Patient Time Spent with Patient: greater than 35 minutes Time Spent with Patient: Greater than 35 minutes spent on this patients care, greater than 50% of time spent counseling, educating, and coordinating care regarding the above mentioned plan. - Physical Exam Constitutional: no apparent distress, appears nourished, not in pain Cardiovascular: regular rate and rhythym, no murmur, rub, or gallop Respiratory: no respiratory distress, no rales or rhonchi, clear to auscultation Gastrointestinal: normoactive bowel sounds, soft, non-tender abdomen, no palpable masses Skin: no rashes or abrasions, no fluctuance, no induration Neurologic: AAOx3, sensation intact bilaterally Psychiatric: interacting appropriately, not encephalopathic, thought process linear, anxious, flat affect ICD10 Worksheet Patient Problems: Problems Problem Status Onset Abdominal pain Acute Abdominal pain Acute Epigastric abdominal pain Acute Intractable vomiting with nausea Acute
[2018-03-22] MEDS: PROMETHAZINE HCL 25 MG/ML INJ IVP PRN (11:05)
[2018-03-22] MEDS: KETOROLAC 30 MG/1 ML SDV IVP PRN ×2 (11:06→20:15)
[2018-03-22] MEDS: Lisdexamfetamine Dimesylate [Vyvanse] 40 MG PO SCH (11:14)
--- NOTE | 2018-03-22 13:31 | ASMTCMCOM ---
CM Note CM Note Notes: Patient plan of care reviewed in rounds. 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 Gwen Garnett consulted. CM to follow for needs. Plan:TBD Date Signed: 03/22/2018 01:30 PM Electronically Signed By:Felicity Solano RN
[2018-03-22] MEDS ORDERED: ADDERALL 20 MG TAB PO PRN (14:00)
[2018-03-22] MEDS ORDERED: HYDROmorphONE/DILAUDID 1 MG/ML INJ IVP ONE (14:57)
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
[2018-03-22] MEDS: D5W 1/2 NS 1,000 ML IV SCH (20:00)
[2018-03-22] MEDS ORDERED: DESIPRAMINE HCL 10 MG TAB PO SCH (21:00)
[2018-03-23] MEDS: D5W 1/2 NS 1,000 ML IV SCH (04:43)
[2018-03-23] MEDS: LORazepam 2 MG/ML INJ IVP PRN ×2 (04:51→11:00)
[2018-03-23 05:05] LABS: PLATELET COUNT 268 10^3/uL (150-400)
[2018-03-23 08:55] LABS: HIV TYPE 1 AND 2 NEGATIVE (NEGATIVE)
[2018-03-23] MEDS: Lisdexamfetamine Dimesylate [Vyvanse] 40 MG PO SCH (09:09)
[2018-03-23] MEDS: LORazepam 1 MG TAB PO PRN ×2 (10:09→20:33)
[2018-03-23] MEDS: KETOROLAC 30 MG/1 ML SDV IVP PRN ×2 (10:12→17:57)
[2018-03-23] MEDS: DULoxetine 30 MG CAP PO SCH (11:15)
[2018-03-23 11:46] LABS: GC AMPLIFICATION GENPROBE NEGATIVE (NEGATIVE)
[2018-03-23] MEDS: ONDANSETRON 4 MG/2 ML VIAL IVP PRN (13:01)
[2018-03-23] MEDS: ACETAMINOPHEN 325 MG TAB PO PRN ×2 (15:42→20:34)
[2018-03-23] MEDS: PROMETHAZINE HCL 25 MG/ML INJ IVP PRN (15:42)
[2018-03-23] MEDS: DICYCLOMINE 10 MG CAP PO PRN ×2 (15:42→20:33)
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
--- NOTE | 2018-03-23 19:09 | SOAPPROG ---
SOAP Progress Note Assessment/Plan: Assessment: Stomach and Large Intestine Heat accumulation Plan: Clear St and LI heat Acupressure and Acupuncture Points: -Scalp middle bridgette to reduce or stop vomiting. -[id number]- to calm stomach pain and circulate bowel movement -St 44- to release St heat -St 36 and Pc6- relieve nausea -billie scalp point for pain -LI4, LI 11, LI10- pain -EAR: thalamus, vagas nerve point, shenmen(stress), ST, HT, BAUDILIO, KD, LV -DU24- Anxiety -Sp 10- blood stagnation 03/23/18 18:58 03/23/18 19:09 Subjective: 17 yr old female patient suffering from severe stomach pain. Has not had a bowel movement in over 4 days or any emission of gas. Pain type is burning and sharp-stabbing all over stomach but mainly on the upper right corner and upper left bertha, level of pain currently is 10 out 10(10 being the worst pain). Stress is high, very emotional, can not sit still, keeps grabbing items then feels like she is going to vomit but does not. Shaky and/or trembling. Stomach to the touch is cold, body feels cold to her, pale skin color, chapped lips, does have thirst, has been drinking cold/ice water. Has little appetite, ate a bagel last night but did not feel good. Objective: Vital Signs Temp Pulse Resp BP Pulse Ox 36.9 C 56 L 16 122/94 H 95 03/23/18 15:34 03/23/18 15:34 03/23/18 15:34 03/23/18 15:34 03/23/18 15:34 Laboratory Results 03/23/18 04:38 03/21/18 04:16 03/22/18 03/23/18 03/24/18 05:59 05:59 05:59 Intake Total 800 1350 300 Output Total 300 Balance 800 1050 300 Seems very anxious, unsteady, and very emotional. Pale skin and chapped lips. Feels cold to the touch on stomach areas. - Time Spent With Patient Time Spent With Patient: Acupuncture/Acupressure needle retention time one hour and fourty-five minutes. During the initial phase of acupressure here pain was still very much at 10 out 10 but after inserting needles her pain levels dropped to 3 out 10 and for the first time she was calm and fall asleep. We continued with the treatment and her pain levels dropped even further and she continued to sleep. We will continue treatments. ICD10 Worksheet Patient Problems: Problems Problem Status Onset Epigastric abdominal pain Acute Intractable vomiting with nausea Acute Abdominal pain Acute Abdominal pain Acute
[2018-03-24] MEDS: hydrOXYzine HCL 25 MG TAB PO PRN ×3 (00:38→12:29)
[2018-03-24] MEDS: KETOROLAC 30 MG/1 ML SDV IVP PRN ×4 (00:38→21:18)
[2018-03-24] MEDS: ACETAMINOPHEN 325 MG TAB PO PRN ×2 (03:09→22:07)
[2018-03-24] MEDS: DICYCLOMINE 10 MG CAP PO PRN ×3 (03:09→18:25)
[2018-03-24] MEDS: LORazepam 1 MG TAB PO PRN ×5 (03:09→22:18)
[2018-03-24] MEDS: DULoxetine 30 MG CAP PO SCH (09:20)
[2018-03-24] MEDS: D5W 1/2 NS 1,000 ML IV SCH ×2 (11:56→21:18)
[2018-03-24] MEDS: SCOPOLAMINE HYDROBROMIDE 1 MG/3 DAYS PATCH TD SCH (12:28)
[2018-03-24] MEDS ORDERED: LACTULOSE 20 GM/30 ML UDCUP PO PRN (14:08)
[2018-03-24] MEDS ORDERED: POLYETHYLENE GLYCOL 3350 17 GM PKT PO PRN (14:08)
[2018-03-24] MEDS ORDERED: BISACODYL 10 MG SUPP PR PRN (14:08)
[2018-03-24] MEDS ORDERED: MAGNESIUM HYDROXIDE 30 ML UDCUP PO PRN (14:08)
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
[2018-03-24] MEDS: PROMETHAZINE HCL 25 MG TAB PO PRN (15:26)
[2018-03-24] MEDS: IBUPROFEN 600 MG TAB PO PRN (15:26)
[2018-03-24] MEDS: PROMETHAZINE HCL 25 MG/ML INJ IVP PRN (18:25)
--- NOTE | 2018-03-24 21:18 | SOAPPROG ---
SOAP Progress Note Assessment/Plan: Assessment: Stomach and Large Intestine Heat accumulation Plan: Clear St and LI heat Acupressure and Acupuncture Points: -Scalp middle bridgette to reduce or stop vomiting. -[id number]- to calm stomach pain and circulate bowel movement -St 44- to release St heat -St 36 and Pc6- relieve nausea -billie scalp point for pain -LI4, LI 11, LI10- pain -EAR: thalamus, vagas nerve point, shenmen(stress), ST, HT, BAUDILIO, KD, LV -DU24- Anxiety -Sp 10- blood stagnation 03/23/18 18:58 03/23/18 19:09 03/24/18 21:00 Same protocol as yesterday with omission of spleen 10 point acupuncture point. Subjective: Patient feels much better today, abdominal pain level about 3-4 out 10(10 being the worst), still sharp-stabbing, felt the urge to have bowel elimination last night after acupuncture treatment but nothing happened. Around 1:30am patient woke up last night with sharp pain and only had one vomiting session, vomit was greenish color, "might be bile", she states. Less anxiety today, feels more calm. Still has cravings for ice cold drinks, slight burning in the stomach but better then yesterday. Urination is dark in color, feels like she is dehydrated, she states. Still no bowel movement about 5 days or so now. Started on lactulose today for constipation. Sleep not good last night but slept a little this morning. In general has vivid dream, nightmares when she sleeps. Currently on menstrual cycle started yesterday, pink/red in color, usually gets severe pain during menses, cramping but not like the pain she has been experiencing in the stomach. Used to have heavy long cycles before the control implant which has been about two years now. Body temperature: Still feels cold but not as bad as yesterday. Objective: Vital Signs Temp Pulse Resp BP Pulse Ox 36.9 C 65 14 124/89 H 95 03/24/18 16:00 03/24/18 16:00 03/24/18 16:00 03/24/18 16:00 03/24/18 16:00 Laboratory Results 03/23/18 04:38 03/21/18 04:16 03/23/18 03/24/18 03/25/18 05:59 05:59 05:59 Intake Total 7983 176 8261 Output Total 300 100 300 Balance 1050 500 855 Skin color slightly pale and hint of yellowish. Weak body but skin is warm to the touch. Eyes look clear. Some crying and laughing during treatment which helped her then she wanted to sleep. - Time Spent With Patient Time Spent With Patient: Acupuncture needle retention time one hour and 45 minutes. We also did some light stomach massage to help with movement of bowels. She did release some emotions which helped her relax even more and eventually fall asleep. Acupuncture treatment recommendation everyday during her stay in the hospital. ICD10 Worksheet Patient Problems: Problems Problem Status Onset Epigastric abdominal pain Acute Intractable vomiting with nausea Acute Abdominal pain Acute Abdominal pain Acute
[2018-03-24] MEDS: SENNOSIDES/DOCUSATE SODIUM TAB PO SCH (21:19)
[2018-03-25] MEDS: DICYCLOMINE 10 MG CAP PO PRN (04:36)
[2018-03-25] MEDS: ACETAMINOPHEN 325 MG TAB PO PRN ×2 (04:45→17:20)
[2018-03-25] MEDS ORDERED: LORazepam 2 MG/ML INJ IVP ONE (05:48)
[2018-03-25] MEDS: LORazepam 1 MG TAB PO PRN ×4 (06:06→21:24)
[2018-03-25] MEDS: KETOROLAC 30 MG/1 ML SDV IVP PRN ×2 (07:40→19:46)
[2018-03-25] MEDS: hydrOXYzine HCL 25 MG TAB PO PRN (07:41)
[2018-03-25] MEDS: D5W 1/2 NS 1,000 ML IV SCH ×2 (07:43→18:19)
[2018-03-25] MEDS ORDERED: HYDROmorphONE/DILAUDID 1 MG/ML INJ IVP ONE (08:28)
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
[2018-03-25] MEDS: PROMETHAZINE HCL 25 MG TAB PO PRN (08:50)
[2018-03-25] MEDS: SENNOSIDES/DOCUSATE SODIUM TAB PO SCH (08:51)
[2018-03-25] MEDS: DULoxetine 30 MG CAP PO SCH (08:51)
[2018-03-25 09:58] LABS: PLATELET COUNT 252 10^3/uL (150-400)
--- NOTE | 2018-03-25 12:57 | SOAPPROG ---
SOAP Progress Note Assessment/Plan: Assessment: 1. N/V 2. Generalized abdominal pain 3. Malnutrition Plan: 1. Gastric emptying study 2. Encouraged to eat small, frequent meals without diet restriction 3. Dietary consult 4. Pre-medicate with zofran before meals 5. Urine PBG (screen for porphyria) 6. C1 esterase inhibitor level 03/25/18 12:55 Subjective: CC: No acute complaints. Intermittently nauseated and with pain. Some improvement but not really eating. Objective: Vital Signs Temp Pulse Resp BP Pulse Ox 36.9 C 51 L 15 120/85 H 95 03/25/18 08:00 03/25/18 08:00 03/25/18 08:00 03/25/18 08:00 03/25/18 08:00 Laboratory Results 03/25/18 09:24 03/25/18 09:24 03/24/18 03/25/18 03/26/18 05:59 05:59 05:59 Intake Total 600 2215 849 Output Total 100 400 Balance 500 1815 849 Physical Exam - Physical Exam General Appearance: no apparent distress, thin EENT: normal ENT inspection Neck: full range of motion Respiratory: lungs clear Cardiac/Chest: regular rate, rhythm Abdomen: normal bowel sounds, non-tender, soft ICD10 Worksheet Patient Problems: Problems Problem Status Onset Epigastric abdominal pain Acute Intractable vomiting with nausea Acute Abdominal pain Acute Abdominal pain Acute Abdominal pain Acute
--- NOTE | 2018-03-25 13:40 | ASMTCMCOM ---
CM Note CM Note Notes: Patient plan of care reviewed in rounds. I have provided an [facility] contact for her f/u under her discharge instructions for her to call [facility] at [phone] extension [phone]. Clinically she has not shown improvement yet. Gwen Garnett will hopefully revisit her. CM to follow for needs, Plan: No current needs identified, likely home with outpatient follow up. Date Signed: 03/25/2018 01:39 PM Electronically Signed By:Felicity Solano RN
[2018-03-25] MEDS: IBUPROFEN 600 MG TAB PO PRN (13:41)
[2018-03-25] MEDS: PANTOPRAZOLE SODIUM 40 MG TAB PO SCH ×2 (15:27→21:24)
[2018-03-25] MEDS: PROMETHAZINE HCL 25 MG/ML INJ IVP PRN (20:43)
[2018-03-25] MEDS: MELATONIN 3 MG TAB PO PRN (21:24)
[2018-03-26] MEDS: LORazepam 1 MG TAB PO PRN ×3 (02:31→23:38)
[2018-03-26] MEDS: IBUPROFEN 600 MG TAB PO PRN ×2 (02:31→17:59)
[2018-03-26] MEDS: D5W 1/2 NS 1,000 ML IV SCH (02:33)
[2018-03-26] MEDS ORDERED: ONDANSETRON DISINTEGRATING 4 MG TAB PO PRN (08:50)
--- NOTE | 2018-03-26 08:54 | SOAPPROG ---
SOAP Progress Note Assessment/Plan: Assessment: 1. N/V 2. Generalized abdominal pain 3. Malnutrition Plan: 1. Gastric emptying study today if she can do it 2. Encouraged to eat small, frequent meals without diet restriction 3. Dietary consult done. Will ask for supplements 4. Pre-medicate with zofran before meals 5. Librax po TID scheduled 6. Continue scopolamine patch 7. If does not make progress on nutrition soon will need tube feeds 8. Consider inpatient psychiatric evaluation for eating disorder. 9. Stop all non-essential medications (lactulose, dulcolax, IV toradol, IV phenergan) 03/26/18 08:51 03/26/18 08:54 Subjective: CC: anxious. Continued nausea. Panic also continues. Not eating as no appetite and feels afraid to eat. Objective: Vital Signs Temp Pulse Resp BP Pulse Ox 37.0 C 83 18 114/82 H 96 03/26/18 08:35 03/26/18 08:35 03/26/18 08:35 03/26/18 08:35 03/26/18 08:35 Laboratory Results 03/25/18 09:24 03/25/18 09:24 03/25/18 03/26/18 03/27/18 05:59 05:59 05:59 Intake Total 2215 3770 Output Total 400 300 Balance 1815 3470 Physical Exam - Physical Exam General Appearance: anxiety EENT: normal ENT inspection Neck: supple Respiratory: lungs clear Cardiac/Chest: regular rate, rhythm Abdomen: non-tender, soft, No guarding, No rebound ICD10 Worksheet Patient Problems: Problems Problem Status Onset Epigastric abdominal pain Acute Intractable vomiting with nausea Acute Abdominal pain Acute Abdominal pain Acute Abdominal pain Acute
[2018-03-26] MEDS ORDERED: ONDANSETRON 4 MG/2 ML VIAL ONE (08:55)
[2018-03-26] MEDS: ONDANSETRON 4 MG/2 ML VIAL IVP PRN (08:57)
[2018-03-26] MEDS: DULoxetine 30 MG CAP PO SCH (14:36)
[2018-03-26] MEDS: ACETAMINOPHEN 325 MG TAB PO PRN ×2 (14:36→19:40)
[2018-03-26] MEDS: CHLORDIAZ/CLIDINIU 5 MG/2.5 MG 1 CAP PO SCH ×3 (14:37→20:24)
[2018-03-26] MEDS: PANTOPRAZOLE SODIUM 40 MG TAB PO SCH ×2 (14:37→20:24)
[2018-03-26] MEDS: PROMETHAZINE HCL 25 MG TAB PO PRN ×2 (14:42→20:24)
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
[2018-03-26] MEDS: diphenhydrAMINE 25 MG CAP PO PRN (19:40)
[2018-03-26] MEDS: MELATONIN 3 MG TAB PO PRN (20:24)
[2018-03-27] MEDS: IBUPROFEN 600 MG TAB PO PRN ×2 (05:00→18:16)
[2018-03-27] MEDS: LORazepam 1 MG TAB PO PRN ×3 (05:00→23:21)
[2018-03-27] MEDS: DULoxetine 30 MG CAP PO SCH (10:04)
[2018-03-27] MEDS: CHLORDIAZ/CLIDINIU 5 MG/2.5 MG 1 CAP PO SCH ×3 (10:04→20:57)
[2018-03-27] MEDS ORDERED: METOCLOPRAMIDE 10 MG TAB PO ONE (10:05)
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
[2018-03-27] MEDS: PANTOPRAZOLE SODIUM 40 MG TAB PO SCH (10:18)
[2018-03-27] MEDS: SCOPOLAMINE HYDROBROMIDE 1 MG/3 DAYS PATCH TD SCH (13:42)
[2018-03-27] MEDS: PROMETHAZINE HCL 25 MG TAB PO PRN ×2 (13:44→19:50)
--- NOTE | 2018-03-27 13:53 | SOAPPROG ---
SOAP Progress Note Assessment/Plan: Assessment: Stomach and Large Intestine Heat accumulation Plan: Clear St and LI heat Acupressure and Acupuncture Points: -Scalp middle bridgette to reduce or stop vomiting. -[id number]- to calm stomach pain and circulate bowel movement -St 44- to release St heat -St 36 and Pc6- relieve nausea -billie scalp point for pain -LI4, LI 11, LI10- pain -EAR: thalamus, vagas nerve point, shenmen(stress), ST, HT, BAUDILIO, KD, LV -DU24- Anxiety -Sp 10- blood stagnation 03/23/18 18:58 03/23/18 19:09 03/24/18 21:00 Same protocol as yesterday with omission of spleen 10 point acupuncture point. 03/27/18 13:48 Assessment: Stomach and Large Intestine Heat accumulation Plan: Clear St and LI heat Acupressure and Acupuncture Points: -Scalp middle bridgette to reduce or stop vomiting. -[id number]- to calm stomach pain and circulate bowel movement -St 44- to release St heat -St 36 and Pc6- relieve nausea -billie scalp point for pain -LI4- pain -EAR: thalamus, vagas nerve point, shenmen(stress), ST, HT, BAUDILOI, KD, LV -SJ5-Release bowel movement -Sp9-damp fluid release, nausea -SP6-circulate blood Subjective: Patient has hardly any complaints today. No nausea at the moment, no pain, no more coldness and has had small amounts of bowel movement but mainly diarrhea. Diarrhea smell is bad, no undigested food, no blood or mucus. Sleep is much better as well, no spells of vomiting either. So far everything is getting better. Objective: Vital Signs Temp Pulse Resp BP Pulse Ox 36.9 C 60 14 109/73 95 03/27/18 09:46 03/27/18 09:46 03/27/18 09:46 03/27/18 09:46 03/27/18 09:46 Laboratory Results 03/25/18 09:24 03/25/18 09:24 03/26/18 03/27/18 03/28/18 05:59 05:59 04:59 Intake Total 3770 700 Output Total 300 Balance 3470 700 Slightly pale/yellowish still but mood is much better. - Time Spent With Patient Time Spent With Patient: Acupuncture needle retention one hour. ICD10 Worksheet Patient Problems: Problems Problem Status Onset Epigastric abdominal pain Acute Intractable vomiting with nausea Acute Abdominal pain Acute Abdominal pain Acute Abdominal pain Acute
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
[2018-03-27] MEDS: ACETAMINOPHEN 325 MG TAB PO PRN ×2 (16:51→20:57)
[2018-03-27] MEDS: MELATONIN 3 MG TAB PO PRN (20:58)
[2018-03-27] MEDS: diphenhydrAMINE 25 MG CAP PO PRN (20:58)
[2018-03-28] MEDS: IBUPROFEN 600 MG TAB PO PRN (00:20)
[2018-03-28] MEDS: LORazepam 1 MG TAB PO PRN (06:22)
[2018-03-28] MEDS: CHLORDIAZ/CLIDINIU 5 MG/2.5 MG 1 CAP PO SCH (08:28)
[2018-03-28] MEDS: DULoxetine 30 MG CAP PO SCH (08:28)
[2018-03-28 08:32] VITALS: BP 128/91
--- NOTE | 2018-04-16 08:47 | GPROG ---
The patient's cardiovascular status is normal, stable. The patient's pulmonary status is normal. The patient's mental status is sleepy, easily arousable. Pain control is adequate at this time with p.r.n. treatment ordered. Nausea and vomiting control are adequate at this time with p.r.n. treatment ordered. Complications related to anesthesia are none observed at this time. /[id number]/MODL
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
== END 2018-03-28 11:26 | disposition home or self-care (01) | DRG 392 ==
LOC: F1N 03-20 00:58 → OBSVTOIN 03-20 10:47
PROVIDERS: ADMIT Student in an Organized Health Care Education/Training Program; ATTEND Student in an Organized Health Care Education/Training Program
PROC: 0DJ08ZZ Inspection of Upper Intestinal Tract, Via Natural or Artificial Opening Endoscopic (ICD-10-PCS; principal; 2018-03-21 10:30)
DX: K52.3 Indeterminate colitis (principal); I87.1 Compression of vein; R11.0 Nausea; R63.4 Abnormal weight loss; R00.1 Bradycardia, unspecified; F41.9 Anxiety disorder, unspecified; F90.9 Attention-deficit hyperactivity disorder, unspecified type; Z23 Encounter for immunization
CPT/HCPCS: 96365; 96366; A9541; G0008; J1170; J1200; J1885; J2060; J2250; J2405; J2550; J2704

== ENCOUNTER → 2018-03-19 | Outpatient (CLI) | payer OTHER | LOC: FIMAGING 10:51 | PROVIDERS: ATTEND Nurse Practitioner Family | DX: R10.13 Epigastric pain (principal); R63.4 Abnormal weight loss ==

== ENCOUNTER 2018-04-03 08:58 | Emergency (ER) | payer OTHER ==
--- NOTE | 2018-04-03 09:06 | EDPHY ---
H & P Time Seen by Provider: 04/03/18 09:04 HPI/ROS: CHIEF COMPLAINT: Vomiting abdominal pain since this morning HISTORY OF PRESENT ILLNESS: 17-year-old female history of chronic abdominal pain , cyclic vomiting, recent hospital admission for similar, via private vehicle with parents complaining of return of symptoms approximately 2:00 a.m. Today. Since last hospital discharge few days ago states that she has been feeling well , tolerating oral intake however she woke 2:00 a.m. With her usual epigastric pain, intractable nausea, vomiting. Bowel movements normal. No fever no chills. No trauma. REVIEW OF SYSTEMS: 10 systems reviewed and negative with the exception of the elements mentioned in the history of present illness PAST MEDICAL & SURGICAL HISTORY: History of similar symptoms, possible cyclic vomiting, suspected eating disorder. SOCIAL HISTORY: Student. Intermittent marijuana use. Denies recent alcohol abuse. PHYSICAL EXAM (Prior to examination, patient consented to physical exam, hands were washed and my usual and customary physical exam procedures followed) 1) GENERAL: Well-developed, well-nourished, alert and oriented. Appears anxious. 2) HEAD: Normocephalic, atraumatic 3) HEENT: Pupils equal, round, reactive to light bilaterally. Sclera anicteric. Nasopharynx, oropharynx, clear, no lesions. Dry mucous membranes. 4) NECK: Full range of motion, no meningeal signs. 5) LUNGS: Clear auscultation bilaterally, no wheezes, no rhonchi, no retractions. 6) HEART: Regular rate and rhythm, no murmur, no heave, no gallop. 7) ABDOMEN: Guarding abdomen, tender to palpation all quadrants, 8) MUSCULOSKELETAL: Moving all extremities, no focal areas of tenderness, no obvious trauma. No peripheral edema or discoloration. 9) BACK: No CVA tenderness, no midline vertebral tenderness, no fluctuance, no step-off, no obvious trauma, no visual or palpable abnormality. 10) SKIN: No rash, no petechiae. 11) Psychiatric: Patient is oriented X 3, there is no agitation. DIFFERENTIAL DIAGNOSIS: My differential diagnosis includes, but is not limited to, acute appendicitis, acute cholecystitis, bowel obstruction, acute pancreatitis, ovarian torsion, ectopic , gastritis and urinary tract infection. The patient understands that this diagnosis is provisional and can never be 100% accurate. This is a partial list of diagnoses considered. These considerations are based on history, physical exam, past history and reassessment. - Medical/Surgical History Hx Asthma: No Hx Chronic Respiratory Disease: No Hx Diabetes: No Hx Cardiac Disease: No Hx Renal Disease: No Hx Cirrhosis: No Hx Alcoholism: No Hx HIV/AIDS: No Hx Splenectomy or Spleen Trauma: No Other PMH: 2 knee surgeries. - Social History Smoking Status: Never smoked Constitutional: Initial Vital Signs Temperature (C) 36.7 C 04/03/18 09:02 Heart Rate 114 H 04/03/18 09:02 Respiratory Rate 26 H 04/03/18 09:02 Blood Pressure 133/85 H 04/03/18 09:02 O2 Sat (%) 100 04/03/18 09:02 O2 Delivery Mode Room Air Allergies/Adverse Reactions: No Known Allergies Allergy (Unverified 04/03/18 09:00) Home Medications: Medication Instructions Recorded Cymbalta 04/03/18 LORazepam 04/03/18 [place] 5/325 (*) 04/03/18 Phenergan 04/03/18 Medical Decision Making ED Course/Re-evaluation: Reviewed the patient's old medical records. She had recent hospital admission for intractable nausea vomiting abdominal pain with moderate gastroparesis on gastric emptying study. It was noted that she had improvement in symptoms with hot showers. 10:23 a.m.: Re-evaluation, patient is sleeping, she has received IV Haldol 2.5 mg. States that she is asymptomatic. She would like to attempt oral fluid challenge and would like to go home if possible. She is at the bedside with parents who agree that they would like her to come home. Patient tolerating oral intake would like to be discharged home. Given my usual and customary abdominal precautions instructions I saw this patient independently based on established practice protocols. Care of patient under supervision of secondary supervising physician Dr Esteban Kwok with whom I discussed case. - Data Points Laboratory Results: Laboratory Results 04/03/18 09:10 04/03/18 09:10 04/03/18 04/03/18 04/03/18 09:10 09:10 09:10 WBC 10.97 10^3/uL H 10^3/uL (3.80-9.50) RBC 4.80 10^6/uL 10^6/uL (4.18-5.33) Hgb 15.9 g/dL g/dL (12.6-16.3) Hct 43.9 % % (38.0-47.0) MCV 91.5 fL fL (81.5-99.8) MCH 33.1 pg pg (27.9-34.1) MCHC 36.2 g/dL g/dL (32.4-36.7) RDW 12.2 % % (11.5-15.2) Plt Count 387 10^3/uL 10^3/uL (150-400) MPV 10.0 fL fL (8.7-11.7) Neut % (Auto) 90.9 % H % (39.3-74.2) Lymph % (Auto) 6.0 % L % (15.0-45.0) [place] % (Auto) 2.3 % L % (4.5-13.0) Eos % (Auto) 0.2 % L % (0.6-7.6) Baso % (Auto) 0.3 % % (0.3-1.7) Nucleat RBC Rel Count 0.0 % % (0.0-0.2) Absolute Neuts (auto) 9.98 10^3/uL H 10^3/uL (1.70-6.50) Absolute Lymphs (auto) 0.66 10^3/uL L 10^3/uL (1.00-3.00) Absolute Monos (auto) 0.25 10^3/uL L 10^3/uL (0.30-0.80) Absolute Eos (auto) 0.02 10^3/uL L 10^3/uL (0.03-0.40) Absolute Basos (auto) 0.03 10^3/uL 10^3/uL (0.02-0.10) Absolute Nucleated RBC 0.00 10^3/uL 10^3/uL (0-0.01) Immature Gran % 0.3 % % (0.0-1.1) Immature Gran # 0.03 10^3/uL 10^3/uL (0.00-0.10) Sodium 140 mEq/L mEq/L (135-145) Potassium 4.3 mEq/L mEq/L (3.3-5.0) Chloride 104 mEq/L mEq/L (97-110) Carbon Dioxide 19 mEq/l L mEq/l (22-31) Anion Gap 17 mEq/L H mEq/L (6-14) BUN 14 mg/dL mg/dL (7-23) Creatinine 0.7 mg/dL mg/dL (0.6-1.0) Estimated GFR > 60 Glucose 139 mg/dL H mg/dL (70-100) Calcium 10.9 mg/dL H mg/dL (8.5-10.4) Phosphorus 4.0 mg/dL mg/dL (2.5-4.5) Total Bilirubin 0.8 mg/dL mg/dL (0.1-1.4) Conjugated Bilirubin 0.2 mg/dL mg/dL (0.0-0.5) Unconjugated Bilirubin 0.6 mg/dL mg/dL (0.0-1.1) AST 29 IU/L IU/L (14-46) ALT 36 IU/L IU/L (9-52) Alkaline Phosphatase 84 IU/L IU/L (38-126) Total Protein 8.9 g/dL H g/dL (6.3-8.2) Albumin 5.4 g/dL H g/dL (3.5-5.0) Lipase 133 IU/L IU/L (23-300) Beta HCG, Qual NEGATIVE Medications Given: Discontinued Medications Diphenhydramine HCl (Benadryl Injection) 25 mg IVP EDNOW ONE Stop: 04/03/18 09:17 Last Admin: 04/03/18 09:17 Dose: 25 mg Haloperidol Lactate (Haldol Injection) 2.5 mg IVP EDNOW ONE Stop: 04/03/18 09:12 Last Admin: 04/03/18 09:18 Dose: 2.5 mg Sodium Chloride (Ns) 1,000 mls @ 0 mls/hr IV ONCE ONE PRN Reason: Wide Open Stop: 04/03/18 09:12 Last Admin: 04/03/18 09:19 Dose: 1,000 mls Departure - Departure Disposition: Home, Routine, Self-Care Clinical Impression: Nausea & vomiting Qualifiers: Vomiting type: unspecified Vomiting Intractability: non-intractable Qualified Code(s): R11.2 - Nausea with vomiting, unspecified Condition: Good Instructions: Acute Nausea and Vomiting (ED) Additional Instructions: Seek immediate medical attention if you develop new or worsening symptoms, if you develop fevers, chills, inability to tolerate oral intake or any other symptoms that concerns you. Referrals: TIMOTHY SWEENEY [Other] - 1-2 days without fail
[2018-04-03] MEDS ORDERED: NS 1,000 ML IV ONE (09:11)
[2018-04-03] MEDS ORDERED: HALOPERIDOL LACT 5 MG/ML INJ IVP ONE (09:11)
[2018-04-03 09:45] LABS: PLATELET COUNT 387 10^3/uL (150-400)
[2018-04-03 10:06] VITALS: BP 141/103
== END 2018-04-03 10:34 | disposition home or self-care (01) ==
DX: R11.2 Nausea with vomiting, unspecified (principal); R10.9 Unspecified abdominal pain; E86.9 Volume depletion, unspecified
CPT/HCPCS: 96374; J1200; J1630

== ENCOUNTER 2018-04-05 01:05 | Emergency (ER) | payer OTHER ==
[2018-04-05] MEDS ORDERED: ONDANSETRON 4 MG/2 ML VIAL ONE (01:35)
[2018-04-05] MEDS ORDERED: NS 1,000 ML IV ONE ×2 (01:36→02:50)
[2018-04-05] MEDS ORDERED: ONDANSETRON 4 MG/2 ML VIAL IVP ONE (01:37)
[2018-04-05] MEDS ORDERED: HALOPERIDOL LACT 5 MG/ML INJ IVP ONE (01:55)
[2018-04-05 03:50] VITALS: BP 125/65
--- NOTE | 2018-04-05 04:05 | EDPHY ---
H & P Stated Complaint: ongoing n/v, abd pain Time Seen by Provider: 04/05/18 02:02 HPI/ROS: HPI The patient presents with ongoing nausea, vomiting, abdominal pain. The patient was in the emergency department 2 days ago, received IV fluids and Haldol and felt much better and was discharged home. She was admitted to the hospital prior to this for about 6 days for nausea, vomiting, abdominal pain of uncertain origin. She has been taking her medications as prescribed. During the day today her symptoms returned with vomiting after drinking chicken broth and 1 bite of toast. She took Phenergan, Ativan, Benadryl. She felt better for a while, however then tried to eat pudding and began vomiting again. She is now feeling very nauseated and has diffuse aching abdominal pain, this is identical to her previous symptoms. REVIEW OF SYSTEMS 10 systems were reviewed and negative with the exception of the elements mentioned in the history of present illness. PMHx: Abdominal pain, nausea and vomiting requiring admission at the end of February of this year for several days, had a gastric emptying study demonstrated moderate gastro paresis, symptoms thought to have an anxiety component, now taking Librax and Cymbalta. Soc Hx: Here with her parents, occasional marijuana use, college student PHYSICAL General Appearance: Alert, no distress Eyes: Pupils equal and round no pallor or injection ENT, Mouth: Mucous membranes dry Respiratory: There are no retractions, lungs are clear to auscultation Cardiovascular: Regular rate and rhythm Gastrointestinal: Abdomen is soft and non-tender, no masses, bowel sounds normal Neurological: A&O, moves all extremities Skin: Warm and dry, no rashes Musculoskeletal: Neck is supple non tender Extremities: symmetrical, full range of motion Psychiatric: Patient is oriented X 3, there is no agitation Source: Patient, Family, Old records Exam Limitations: No limitations - Personal History LMP (Females 10-55): Extended Cycle BCP/Inj Current Tetanus Diphtheria and Acellular Pertussis (TDAP): Yes - Medical/Surgical History Hx Asthma: No Hx Chronic Respiratory Disease: No Hx Diabetes: No Hx Cardiac Disease: No Hx Renal Disease: No Hx Cirrhosis: No Hx Alcoholism: No Hx HIV/AIDS: No Hx Splenectomy or Spleen Trauma: No Other PMH: 2 knee surgeries. cyclic vomiting, chronic abd pain - Social History Smoking Status: Never smoked Constitutional: Initial Vital Signs Temperature (C) 36.7 C 11/12/18 01:07 Heart Rate 116 H 04/05/18 01:07 Respiratory Rate 18 04/05/18 01:07 Blood Pressure 126/101 H 04/05/18 01:07 O2 Sat (%) 97 04/05/18 01:07 O2 Delivery Mode Room Air Allergies/Adverse Reactions: No Known Allergies Allergy (Unverified 04/03/18 09:00) Home Medications: Medication Instructions Recorded Cymbalta 04/03/18 LORazepam 04/03/18 Phenergan 04/03/18 Medical Decision Making Differential Diagnosis: This is a 17-year-old female with episodic nausea, vomiting, abdominal pain of uncertain origin with recurrence of her symptoms. Recently underwent hospitalization with extensive evaluation, with moderate gastroparesis on emptying study, also some component of anxiety. Taking Librax and Cymbalta currently with Ativan, Benadryl, Phenergan p.r.n. She was discharged from the hospital about 10 days ago, had to return 2 days ago to the ER though improved here with Haldol and now returns with continued symptoms. She is tachycardic and does appear clinically dehydrated. Her mucous membranes are dry, her abdominal exam is benign. Here, she was given 2 L of IV fluid, Zofran, Haldol 2.5 mg. This allowed her to rest and caused her symptoms to improve. Labs were checked and are on par with previous values from 2 days ago, she does seem to be dehydrated with slightly elevated calcium and slight anion gap. I offered her admission to the hospital given her recurrent symptoms, however she declines. She would like to recuperate at home. She can follow up with her primary care doctor. I have also encouraged her to call Dr. Black to arrange for outpatient follow-up. She is going to be meeting with Imelda Henderson NP in a few days who provides integrated psychiatric care which might be helpful for the patient. We have discussed return precautions and importance of drinking fluids in small amounts frequently. Differential diagnosis today includes cyclic vomiting syndrome, gastroparesis, dehydration. - Data Points Laboratory Results: Laboratory Results 04/05/18 01:30 04/05/18 01:30 04/05/18 04/05/18 01:30 01:30 WBC 12.47 10^3/uL H 10^3/uL (3.80-9.50) RBC 4.80 10^6/uL 10^6/uL (4.18-5.33) Hgb 16.0 g/dL g/dL (12.6-16.3) Hct 44.4 % % (38.0-47.0) MCV 92.5 fL fL (81.5-99.8) MCH 33.3 pg pg (27.9-34.1) MCHC 36.0 g/dL g/dL (32.4-36.7) RDW 12.0 % % (11.5-15.2) Plt Count 382 10^3/uL 10^3/uL (150-400) Sodium 140 mEq/L mEq/L (135-145) Potassium 4.1 mEq/L mEq/L (3.3-5.0) Chloride 104 mEq/L mEq/L (97-110) Carbon Dioxide 20 mEq/l L mEq/l (22-31) Anion Gap 16 mEq/L H mEq/L (6-14) BUN 12 mg/dL mg/dL (7-23) Creatinine 0.8 mg/dL mg/dL (0.6-1.0) Estimated GFR > 60 Glucose 102 mg/dL H mg/dL (70-100) Calcium 11.0 mg/dL H mg/dL (8.5-10.4) Phosphorus 3.7 mg/dL mg/dL (2.5-4.5) Medications Given: Discontinued Medications Haloperidol Lactate (Haldol Injection) 2.5 mg IVP EDNOW ONE Stop: 04/05/18 01:56 Last Admin: 04/05/18 02:03 Dose: 2.5 mg Sodium Chloride (Ns) 1,000 mls @ 0 mls/hr IV EDNOW ONE; Wide Open PRN Reason: Protocol Stop: 04/05/18 01:37 Last Admin: 04/05/18 01:38 Dose: 1,000 mls Sodium Chloride (Ns) 1,000 mls @ 0 mls/hr IV EDNOW ONE; Wide Open PRN Reason: Protocol Stop: 04/05/18 02:51 Last Admin: 04/05/18 02:54 Dose: 1,000 mls Ondansetron HCl (Zofran) 4 mg IVP EDNOW ONE Stop: 04/05/18 01:38 Last Admin: 04/05/18 01:38 Dose: 4 mg Departure - Departure Disposition: Home, Routine, Self-Care Clinical Impression: Dehydration Abdominal pain Qualifiers: Abdominal location: generalized Qualified Code(s): R10.84 - Generalized abdominal pain Intractable vomiting with nausea Qualifiers: Vomiting type: unspecified Qualified Code(s): R11.2 - Nausea with vomiting, unspecified Condition: Good Instructions: Dehydration (ED) Additional Instructions: Please try drinking small amounts of clear liquid this morning. I recommend just 1-2 tbsp every 5 min. I want to prevent you from getting dehydrated which could make all of your symptoms worse. Please take your medications as prescribed. Please return to the emergency department if your worse in any way. I would recommend following up with Dr. Black for further care as needed. Referrals: Taco Black MD [Medical Doctor] - As per Instructions
== END 2018-04-05 04:09 | disposition home or self-care (01) ==
DX: R11.2 Nausea with vomiting, unspecified (principal); R10.84 Generalized abdominal pain; G89.29 Other chronic pain; F41.9 Anxiety disorder, unspecified; E86.9 Volume depletion, unspecified; Z79.899 Other long term (current) drug therapy
CPT/HCPCS: 96374; J1630; J2405

== ENCOUNTER 2018-04-05 17:56 | Emergency (ER) | payer OTHER ==
[2018-04-05] MEDS ORDERED: NS 1,000 ML IV ONE ×2 (18:13)
[2018-04-05] MEDS ORDERED: HALOPERIDOL LACT 5 MG/ML INJ IVP ONE (18:13)
--- NOTE | 2018-04-05 18:19 | EDPHY ---
H & P Stated Complaint: ABD PAIN Time Seen by Provider: 04/05/18 18:05 HPI/ROS: CHIEF COMPLAINT: Vomiting HISTORY OF PRESENT ILLNESS: Patient is a 17-year-old female with history of cyclic vomiting and gastroparesis. She was seen here yesterday for the same and improved with Haldol and went home. She was admitted at the end of February for over a week in the hospital and seen by GI. She did have slightly delayed gastric emptying but had a normal CT scan. She was discharged with Cymbalta and librex to take daily as well as Ativan and Phenergan to take p.r.n.. She states that this seemed to work for about a week but then her symptoms flared up again and she has not been able to get them back under control. She has been throwing up for Phenergan. No fever. No abdominal pain. No urinary symptoms. No diarrhea. Denies risk of . Mom called the gastrologist today who told her that there was no need for gastroenterologic follow-up that they think that this is primarily psychiatric. Patient does have a appointment with her primary care doctor tomorrow as well as a psychiatric/GI nurse practitioner later this week. She reports that she has lost 25 lb in the last 3 -4 months. She feels dehydrated. She used to have a history of moderate marijuana use but has quit several weeks ago. Severity: Severe Modifying factors: None despite medications REVIEW OF SYSTEMS: Constitutional: denies: chills, fever, recent illness, recent injury EENTM: denies: blurred vision, double vision, nose congestion Respiratory: denies: cough, shortness of breath Cardiac: denies: chest pain, irregular heart rate, lightheadedness, palpitations Gastrointestinal/Abdominal: See HPI Genitourinary: denies: dysuria, frequency, hematuria, pain Musculoskeletal: denies: joint pain, muscle pain Skin: denies: lesions, rash, jaundice, bruising Neurological: denies: headache, numbness, paresthesia, tingling, dizziness, weakness Hematologic/Lymphatic: denies: blood clots, easy bleeding, easy bruising Immunologic/allergic: denies: HIV/AIDS, transplant 10 systems reviewed and negative except as noted EXAM: GENERAL: Thin, mild distress, tearful HEAD: Atraumatic, normocephalic. EYES: Pupils equal round and reactive to light, extraocular movements intact, sclera anicteric, conjunctiva are normal. ENT: TMs normal, nares patent, oropharynx clear without exudates. Moist mucous membranes. NECK: Normal range of motion, supple without lymphadenopathy or JVD. LUNGS: Breath sounds clear to auscultation bilaterally and equal. No wheezes rales or rhonchi. HEART: Regular rate and rhythm without murmurs, rubs or gallops. ABDOMEN: Soft, nontender, normoactive bowel sounds. No guarding, no rebound. No masses appreciated. BACK: No CVA tenderness, no spinal tenderness, step-offs or deformities EXTREMITIES: Normal range of motion, no pitting or edema. No clubbing or cyanosis. NEUROLOGICAL: Cranial nerves II through XII grossly intact. Normal speech, normal gait. 5/5 strength, normal movement in all extremities, normal sensation , normal reflexes PSYCH: Tearful, anxious SKIN: Warm, dry, normal turgor, no visible rashes or lesions. Source: Patient, Family, Old records - Personal History Current Tetanus/Diphtheria Vaccine: Yes - Medical/Surgical History Hx Asthma: No Hx Chronic Respiratory Disease: No Hx Diabetes: No Hx Cardiac Disease: No Hx Renal Disease: No Hx Cirrhosis: No Hx Alcoholism: No Hx HIV/AIDS: No Hx Splenectomy or Spleen Trauma: No Other PMH: 2 knee surgeries. cyclic vomiting, chronic abd pain - Family History Significant Family History: No pertinent family hx - Social History Smoking Status: Never smoked Alcohol Use: Sober Drug Use: None Constitutional: Initial Vital Signs Temperature (C) 37.2 C 04/05/18 18:09 Heart Rate 94 04/05/18 18:09 Respiratory Rate 16 04/05/18 18:09 Blood Pressure 147/102 H 04/05/18 18:09 O2 Sat (%) 97 04/05/18 18:09 O2 Delivery Mode Room Air Allergies/Adverse Reactions: No Known Allergies Allergy (Unverified 04/03/18 09:00) Home Medications: Medication Instructions Recorded Cymbalta 04/03/18 LORazepam 04/03/18 Phenergan 04/03/18 Promethazine HCl [Phenergan 25mg 25 mg IA Q4-6PRN PRN #10 suppr 04/05/18 supp (RX)] Medical Decision Making ED Course/Re-evaluation: 7:20 p.m. the patient is feeling much better. She is sleeping comfortably but is easily arousable. Her abdominal exam is benign. Parents are eager to go home. They state that this is kind of the routine that she will feel better until tomorrow evening when her symptoms resume. They have been giving her the medications each morning to try and prevent that from happening. They are very eager to talk to the general practitioner tomorrow as well as the holistic psychotherapist/GI provider. I will prescribe her rectal Phenergan because that has occasion been a problem. Differential Diagnosis: Partial list of the Differential diagnosis considered include but were not limited to; gastroparesis, cyclic vomiting, cannabis hyperemesis, anxiety and although unlikely based on the history and physical exam, I also considered DKA , obstruction, ischemia, volvulus. I discussed these differential diagnoses and the plan with the patient as well as the usual and expected course. The patient understands that the diagnosis is provisional and that in medicine we are not always correct and that further workup is often warranted. Usual and customary warnings were given. All of the patient's questions were answered. The patient was instructed to return to the emergency department should the symptoms at all worsen or return, otherwise to followup with the physician as we discussed. - Data Points Laboratory Results: Laboratory Results 04/05/18 18:20 04/05/18 18:20 04/05/18 04/05/18 04/05/18 18:20 18:20 18:20 WBC 8.98 10^3/uL 10^3/uL (3.80-9.50) RBC 4.14 10^6/uL L 10^6/uL (4.18-5.33) Hgb 13.8 g/dL g/dL (12.6-16.3) Hct 38.7 % % (38.0-47.0) MCV 93.5 fL fL (81.5-99.8) MCH 33.3 pg pg (27.9-34.1) MCHC 35.7 g/dL g/dL (32.4-36.7) RDW 12.0 % % (11.5-15.2) Plt Count 283 10^3/uL 10^3/uL (150-400) MPV 9.5 fL fL (8.7-11.7) Neut % (Auto) 77.0 % H % (39.3-74.2) Lymph % (Auto) 14.9 % L % (15.0-45.0) [place] % (Auto) 7.0 % % (4.5-13.0) Eos % (Auto) 0.3 % L % (0.6-7.6) Baso % (Auto) 0.6 % % (0.3-1.7) Nucleat RBC Rel Count 0.0 % % (0.0-0.2) Absolute Neuts (auto) 6.91 10^3/uL H 10^3/uL (1.70-6.50) Absolute Lymphs (auto) 1.34 10^3/uL 10^3/uL (1.00-3.00) Absolute Monos (auto) 0.63 10^3/uL 10^3/uL (0.30-0.80) Absolute Eos (auto) 0.03 10^3/uL 10^3/uL (0.03-0.40) Absolute Basos (auto) 0.05 10^3/uL 10^3/uL (0.02-0.10) Absolute Nucleated RBC 0.00 10^3/uL 10^3/uL (0-0.01) Immature Gran % 0.2 % % (0.0-1.1) Immature Gran # 0.02 10^3/uL 10^3/uL (0.00-0.10) Sodium 139 mEq/L mEq/L (135-145) Potassium 3.7 mEq/L mEq/L (3.3-5.0) Chloride 105 mEq/L mEq/L (97-110) Carbon Dioxide 20 mEq/l L mEq/l (22-31) Anion Gap 14 mEq/L mEq/L (6-14) BUN 10 mg/dL mg/dL (7-23) Creatinine 0.7 mg/dL mg/dL (0.6-1.0) Estimated GFR > 60 Glucose 84 mg/dL mg/dL (70-100) Calcium 10.0 mg/dL mg/dL (8.5-10.4) Total Bilirubin 1.4 mg/dL mg/dL (0.1-1.4) Conjugated Bilirubin 0.3 mg/dL mg/dL (0.0-0.5) Unconjugated Bilirubin 1.1 mg/dL mg/dL (0.0-1.1) AST 22 IU/L IU/L (14-46) ALT 33 IU/L IU/L (9-52) Alkaline Phosphatase 64 IU/L IU/L (38-126) Total Protein 7.5 g/dL g/dL (6.3-8.2) Albumin 4.7 g/dL g/dL (3.5-5.0) Lipase 119 IU/L IU/L (23-300) Beta HCG, Qual NEGATIVE Medications Given: Discontinued Medications Haloperidol Lactate (Haldol Injection) 5 mg IVP EDNOW ONE Stop: 04/05/18 18:14 Last Admin: 04/05/18 18:24 Dose: 5 mg Sodium Chloride (Ns) 1,000 mls @ 0 mls/hr IV EDNOW ONE; Wide Open PRN Reason: Protocol Stop: 04/05/18 18:14 Last Admin: 04/05/18 18:24 Dose: 1,000 mls Sodium Chloride (Ns) 1,000 mls @ 0 mls/hr IV EDNOW ONE; Wide Open PRN Reason: Protocol Stop: 04/05/18 18:14 Last Admin: 04/05/18 18:24 Dose: 1,000 mls Departure - Departure Disposition: Home, Routine, Self-Care Clinical Impression: Cyclic vomiting syndrome Qualifiers: Vomiting Intractability: non-intractable Nausea presence: with nausea Qualified Code(s): G43.A0 - Cyclical vomiting, not intractable Condition: Fair Instructions: Cyclic Vomiting Syndrome (ED) Referrals: TIMOTHY SWEENEY [Other] - As per Instructions Prescriptions: Promethazine HCl [Phenergan 25mg supp (RX)] 25 mg IA Q4-6PRN PRN #10 suppr PRN Reason: Headache
[2018-04-05 18:28] LABS: PLATELET COUNT 283 10^3/uL (150-400)
[2018-04-05 19:38] VITALS: BP 119/87
== END 2018-04-05 19:38 | disposition home or self-care (01) ==
DX: G43.A0 Cyclical vomiting, in migraine, not intractable (principal); E86.9 Volume depletion, unspecified
CPT/HCPCS: 96374; J1630